=== PATIENT | female | born 1945 | race Caucasian/White ===

== ENCOUNTER 2021-11-18 06:40 | Inpatient (IN) | payer MEDICARE, MEDICAID ==
[~2021-11-18] VITALS: Ht 160 cm; Wt 75.0 kg
[~2021-11-18 06:40] MED LIST: ACET-1008 PO; ATOR40TA72 PO; CHOL200016 PO; CITA20TA26 PO; DICL20GE TP; DIVA-52 PO; DONE5TAB7 PO; LACT1CAP26 PO; LAMO25TA5 PO; LISI10TA27 PO; MULT-1074 PO
--- NOTE | 2021-11-18 07:20 | NUR ---
MD Angelo updated pt with SBPs 86-99. Pt to receive IV fluid bolus 1L NS
[2021-11-18] MEDS ORDERED: normal saline 1000ml 1,000 ML IV ONE ×2 (07:30→08:35)
[2021-11-18 07:35] LABS: BASOPHILS % (AUTO) 0.2 % (0-1); EOSINOPHILS % (AUTO) 0 % (0-6); HEMATOCRIT 33.1 % (35.0-45.0); HEMOGLOBIN 11.2 g/dl (12.0-16.0); LYMPHOCYTES # (AUTO) 0.9 X10'3 (1.1-4.8); LYMPHOCYTES % (AUTO) 8.9 % (21-51); MEAN CORPUSCULAR HEMOGLOBIN 32.6 PG (27.0-31.0); MEAN CORPUSCULAR HGB CONC 33.7 g/dL (33.0-36.5); MEAN CORPUSCULAR VOLUME 96.8 FL (78-98); MEAN PLATELET VOLUME 6.9 FL (7.4-10.4); MONOCYTES # (AUTO) 1.1 X10'3 (0-0.9); MONOCYTES % (AUTO) 10.3 % (2-12); NEUTROPHILS # (AUTO) 8.3 X10'3 (1.8-7.7); NEUTROPHILS % (AUTO) 80.6 % (42-75); PLATELET COUNT 222 X10'3 (140-440); RED BLOOD COUNT 3.42 X10'6 (4.20-5.60); RED CELL DISTRIBUTION WIDTH 13.8 % (11.5-14.5); WHITE BLOOD COUNT 10.3 X10'3 (4.5-11.0)
[2021-11-18 08:05] LABS: ALANINE AMINOTRANSFERASE 17 U/L (12-78); ALBUMIN 2.8 G/DL (3.4-5.0); ALBUMIN/GLOBULIN RATIO 0.8 (1.1-1.5); ALKALINE PHOSPHATASE 68 IU/L (46-116); ANION GAP 8 (8-16); ASPARTATE AMINO TRANSFERASE 21 U/L (10-37); BILIRUBIN,TOTAL 0.7 MG/DL (0.1-1.0); BLOOD UREA NITROGEN 23 MG/DL (7-18); CALCIUM 9.3 MG/DL (8.5-10.1); CHLORIDE 102 MMOL/L (99-107); CREATININE 1.21 MG/DL (0.40-0.90); GLUCOSE 138 MG/DL (70-104); POTASSIUM 4.2 MMOL/L (3.5-5.1); SODIUM 134 MMOL/L (135-145); TOTAL CARBON DIOXIDE 23.8 MMOL/L (24-32); TOTAL PROTEIN 6.4 G/DL (6.4-8.2); eGFR 43 ML/MIN
[2021-11-18] MEDS ORDERED: cefTRIAXone 1g/NS 100ml IVPB 100 ML IV ONE (08:35)
[2021-11-18 09:07] LABS: CLARITY,URINE TURBID (Clear); COLOR,URINE YELLOW (Yellow); GLUCOSE, URINE NEGATIVE (Neg); KETONES,URINE NEGATIVE (Neg); LEUKOCYTE ESTERASE ,URINE LARGE (Neg); NITRITES, URINE POSITIVE (Neg); OCCULT BLOOD,URINE MODERATE (Neg); PROTEIN,URINE 100 mg/dl (Neg); UROBILINOGEN,URINE 0.2 E.U/dL (0.2-1.0)
[2021-11-18 09:11] LABS: UA COLLECTION TYPE OTHER
[2021-11-18 09:12] LABS: BACTERIA,URINE 3+ /HPF (Neg); WBC,URINE TNTC /HPF (0-4)
[2021-11-18 09:13] LABS: RBC,URINE 0-2 /HPF (0-2); SQUAMOUS EPITHELIAL CELL,UR FEW /LPF (FEW)
[2021-11-18] MEDS ORDERED: potassium CL 10mEq/100ml bag 100 ML IV PRN (10:15)
[2021-11-18] MEDS ORDERED: ondansetron/PF 4mg/2ml inj IV PRN (10:15)
[2021-11-18] MEDS ORDERED: magnesium 2GM in 50ml NS 50 ML IV PRN (10:15)
[2021-11-18] MEDS ORDERED: magnesium 4gm in 100ml NS 100 ML IV PRN (10:15)
[2021-11-18] MEDS ORDERED: acetaminophen 325mg tablet PO PRN (10:15)
[2021-11-18] MEDS ORDERED: magnesium hydroxide 30ml (MOM) UD suspension PO PRN (10:15)
[2021-11-18] MEDS ORDERED: mag hydrox/Alum hydrox/simeth 30ml oral suspension PO PRN (10:15)
[2021-11-18] MEDS ORDERED: magnesium Cl slow-release 64mg tablet PO PRN (10:15)
[2021-11-18] MEDS ORDERED: potassium Cl 20 mEq SR tablet PO PRN ×2 (10:15)
[2021-11-18 11:11] LABS: MAGNESIUM 1.9 MG/DL (1.5-2.4)
[2021-11-18 13:30] VITALS: BP 146/54
[2021-11-18] MEDS: normal saline 1000ml 1,000 ML IV SCH ×2 (13:40→20:15)
[2021-11-18 15:00] VITALS: BP 113/59
[2021-11-18] MEDS ORDERED: DIVA-52 PO (16:36)
[2021-11-18] MEDS ORDERED: ATOR40TA72 PO (16:39)
[2021-11-18] MEDS ORDERED: MEMA28CA16 PO (16:39)
[2021-11-18] MEDS ORDERED: OXYB10TA30 PO (16:39)
[2021-11-18] MEDS ORDERED: LAMO50TA3 PO (16:39)
[2021-11-18] MEDS ORDERED: DONE10TA44 PO (16:39)
[2021-11-18] MEDS ORDERED: DIVA-76 PO (16:39)
[2021-11-18] MEDS ORDERED: SERT-434 PO (16:39)
[2021-11-18] MEDS ORDERED: CHOL20003 PO (16:39)
[2021-11-18] MEDS ORDERED: METF-1203 PO (16:39)
[2021-11-18] MEDS ORDERED: LISI10TA27 PO (16:39)
[2021-11-18] MEDS ORDERED: DICL20GE TP (16:41)
[2021-11-18] MEDS ORDERED: MULT-1074 PO (16:41)
[2021-11-18] MEDS ORDERED: ASPI81TA52 PO (16:41)
[2021-11-18] MEDS ORDERED: LACT1CAP75 PO (16:41)
[2021-11-18] MEDS ORDERED: DICLOFENAC SODIUM TP PRN (16:45)
[2021-11-18 18:00] VITALS: BP 95/53
--- NOTE | 2021-11-18 18:30 | NUR ---
Patient in room PCU 3026. I have received report from JOEL REYES AND CALVIN RN and had the opportunity to ask questions and assume patient care.
[2021-11-18] MEDS: LAMOTRIGINE 50 MG PO SCH (20:00)
[2021-11-18] MEDS: K and/or MAG REPLACEMENT MC SCH (20:00)
[2021-11-18] MEDS: memantine 5mg tablet PO SCH (20:31)
[2021-11-18] MEDS: donepezil 5mg tablet PO SCH (20:31)
[2021-11-18] MEDS: oxybutynin 5mg tablet PO SCH (20:32)
[2021-11-18] MEDS: docusate sod 100mg capsule PO SCH (20:32)
[2021-11-18] MEDS: divalproex sodium 500mg tablet.DR PO SCH (20:34)
[2021-11-18] MEDS: heparin, porcine 5000 units/ml vial SQ SCH (20:35)
[2021-11-18 22:00] VITALS: BP 133/57
--- NOTE | 2021-11-19 00:20 | NUR ---
TETE SANCHEZ AND WAS INFORMED OF POSITIVE BLOOD CULTURE GRAM NEGATIVE RODS IN ANAEROBIC BOTTLE AFTER 14.2 HRS.
--- NOTE | 2021-11-19 00:35 | NUR ---
DR. SANCHEZ CALLED BACK WITH ORDER TO GIVE FLAGYL 500MG IV Q8HRS.
[2021-11-19] MEDS: normal saline 1000ml 1,000 ML IV SCH ×2 (01:06→15:08)
[2021-11-19] MEDS: metroNIDAZOLE-Flagyl 500mg/NS 100 ML IV SCH ×3 (01:14→16:48)
[2021-11-19 02:00] VITALS: BP 116/68
[2021-11-19 05:32] LABS: BASOPHILS % (AUTO) 0.2 % (0-1); EOSINOPHILS % (AUTO) 0 % (0-6); HEMATOCRIT 28.7 % (35.0-45.0); HEMOGLOBIN 9.6 g/dl (12.0-16.0); LYMPHOCYTES # (AUTO) 0.9 X10'3 (1.1-4.8); LYMPHOCYTES % (AUTO) 13.3 % (21-51); MEAN CORPUSCULAR HEMOGLOBIN 32.4 PG (27.0-31.0); MEAN CORPUSCULAR HGB CONC 33.5 g/dL (33.0-36.5); MEAN CORPUSCULAR VOLUME 96.8 FL (78-98); MONOCYTES # (AUTO) 0.7 X10'3 (0-0.9); MONOCYTES % (AUTO) 10.2 % (2-12); NEUTROPHILS % (AUTO) 76.3 % (42-75); PLATELET COUNT 194 X10'3 (140-440); RED BLOOD COUNT 2.97 X10'6 (4.20-5.60); RED CELL DISTRIBUTION WIDTH 14.3 % (11.5-14.5); WHITE BLOOD COUNT 6.6 X10'3 (4.5-11.0)
[2021-11-19 05:36] LABS: ALBUMIN 2.1 G/DL (3.4-5.0); ANION GAP 9 (8-16); BLOOD UREA NITROGEN 17 MG/DL (7-18); BUN/CREATININE RATIO 23.3 (6.6-38.0); CHLORIDE 108 MMOL/L (99-107); CREATININE 0.73 MG/DL (0.40-0.90); GLUCOSE 104 MG/DL (70-104); MAGNESIUM 1.7 MG/DL (1.5-2.4); POTASSIUM 3.6 MMOL/L (3.5-5.1); SODIUM 139 MMOL/L (135-145); TOTAL CARBON DIOXIDE 22.2 MMOL/L (24-32); eGFR 78 ML/MIN
[2021-11-19 06:00] VITALS: BP 117/53
--- NOTE | 2021-11-19 06:30 | NUR ---
Problems reprioritized. Patient report given, questions answered & plan of care reviewed with CHANELL REYES.
[2021-11-19] MEDS: K and/or MAG REPLACEMENT MC SCH ×2 (08:00→20:00)
[2021-11-19] MEDS: LAMOTRIGINE 50 MG PO SCH ×2 (08:00→20:00)
[2021-11-19] MEDS: oxybutynin 5mg tablet PO SCH ×2 (08:05→20:22)
[2021-11-19] MEDS: lactobacillus rhamnosus 10,000 MMU CELLS/CAPSULE PO SCH (08:05)
[2021-11-19] MEDS: metFORMIN 500mg tablet PO SCH (08:05)
[2021-11-19] MEDS: atorvastatin 20mg tablet PO SCH (08:05)
[2021-11-19] MEDS: docusate sod 100mg capsule PO SCH ×2 (08:05→20:22)
[2021-11-19] MEDS: cholecalciferol (vitamin D3) 1,000 unit (25mcg) tablet PO SCH (08:06)
[2021-11-19] MEDS: sertraline 50mg tablet PO SCH (08:06)
[2021-11-19] MEDS: divalproex sodium 500mg tablet.DR PO SCH ×2 (08:07→20:22)
[2021-11-19] MEDS: memantine 5mg tablet PO SCH ×2 (08:07→20:22)
[2021-11-19] MEDS: cefTRIAXone 1g/NS 100ml IVPB 100 ML IV SCH (08:08)
[2021-11-19] MEDS: multivitamins, therapeutics tablet PO SCH (08:08)
[2021-11-19] MEDS: aspirin 81mg, enteric-coated 1 TAB TABLET.DR PO SCH (08:09)
[2021-11-19] MEDS: lisinopril 10 MG tablet PO SCH (08:12)
[2021-11-19] MEDS: heparin, porcine 5000 units/ml vial SQ SCH ×2 (08:26→20:23)
[2021-11-19 11:00] VITALS: BP 125/53
[2021-11-19 15:00] VITALS: BP 102/45
--- NOTE | 2021-11-19 17:03 | NUR ---
PAGER ID: [phone] MESSAGE: [id number] Chio Rogers lamotrigine ER not in our formulary. Change rx in hospital? [id number] Katie
[2021-11-19 18:00] VITALS: BP 115/74
--- NOTE | 2021-11-19 18:54 | NUR ---
Report to noc RN
[2021-11-19] MEDS: donepezil 5mg tablet PO SCH (20:21)
[2021-11-19] MEDS: lamoTRIgine 25mg tablet PO SCH (20:25)
[2021-11-19 22:00] VITALS: BP 115/62
[2021-11-20] MEDS: metroNIDAZOLE-Flagyl 500mg/NS 100 ML IV SCH ×2 (00:22→08:31)
[2021-11-20 02:00] VITALS: BP 108/53
[2021-11-20] MEDS: normal saline 1000ml 1,000 ML IV SCH (03:11)
[2021-11-20 05:47] LABS: BASOPHILS % (AUTO) 0.6 % (0-1); EOSINOPHILS # (AUTO) 0.1 X10'3 (0-0.9); HEMATOCRIT 29.6 % (35.0-45.0); HEMOGLOBIN 9.7 g/dl (12.0-16.0); LYMPHOCYTES # (AUTO) 1.7 X10'3 (1.1-4.8); LYMPHOCYTES % (AUTO) 31.9 % (21-51); MEAN CORPUSCULAR HEMOGLOBIN 31.8 PG (27.0-31.0); MEAN CORPUSCULAR HGB CONC 32.8 g/dL (33.0-36.5); MEAN CORPUSCULAR VOLUME 96.9 FL (78-98); MEAN PLATELET VOLUME 7.4 FL (7.4-10.4); MONOCYTES # (AUTO) 0.7 X10'3 (0-0.9); MONOCYTES % (AUTO) 13.6 % (2-12); NEUTROPHILS # (AUTO) 2.8 X10'3 (1.8-7.7); NEUTROPHILS % (AUTO) 52.9 % (42-75); PLATELET COUNT 198 X10'3 (140-440); RED BLOOD COUNT 3.06 X10'6 (4.20-5.60); RED CELL DISTRIBUTION WIDTH 14.3 % (11.5-14.5); WHITE BLOOD COUNT 5.3 X10'3 (4.5-11.0)
[2021-11-20 06:00] VITALS: BP 114/58
[2021-11-20 06:09] LABS: ALBUMIN 2.2 G/DL (3.4-5.0); ANION GAP 6 (8-16); BLOOD UREA NITROGEN 22 MG/DL (7-18); BUN/CREATININE RATIO 29.3 (6.6-38.0); CALCIUM 8.9 MG/DL (8.5-10.1); CHLORIDE 107 MMOL/L (99-107); CREATININE 0.75 MG/DL (0.40-0.90); GLUCOSE 96 MG/DL (70-104); MAGNESIUM 1.6 MG/DL (1.5-2.4); POTASSIUM 4.4 MMOL/L (3.5-5.1); SODIUM 138 MMOL/L (135-145); TOTAL CARBON DIOXIDE 24.7 MMOL/L (24-32); eGFR 75 ML/MIN
[2021-11-20] MEDS: cefTRIAXone 1g/NS 100ml IVPB 100 ML IV SCH (07:13)
[2021-11-20] MEDS: divalproex sodium 500mg tablet.DR PO SCH (07:30)
[2021-11-20] MEDS: metFORMIN 500mg tablet PO SCH (07:30)
[2021-11-20] MEDS: sertraline 50mg tablet PO SCH (07:31)
[2021-11-20] MEDS: atorvastatin 20mg tablet PO SCH (07:31)
[2021-11-20] MEDS: multivitamins, therapeutics tablet PO SCH (07:32)
[2021-11-20] MEDS: heparin, porcine 5000 units/ml vial SQ SCH (07:32)
[2021-11-20] MEDS: aspirin 81mg, enteric-coated 1 TAB TABLET.DR PO SCH (07:32)
[2021-11-20] MEDS: memantine 5mg tablet PO SCH (07:32)
[2021-11-20] MEDS: lactobacillus rhamnosus 10,000 MMU CELLS/CAPSULE PO SCH (07:32)
[2021-11-20] MEDS: lisinopril 10 MG tablet PO SCH (07:35)
[2021-11-20] MEDS: oxybutynin 5mg tablet PO SCH (07:35)
[2021-11-20] MEDS: cholecalciferol (vitamin D3) 1,000 unit (25mcg) tablet PO SCH (07:35)
[2021-11-20] MEDS: docusate sod 100mg capsule PO SCH (07:36)
[2021-11-20] MEDS: K and/or MAG REPLACEMENT MC SCH (08:00)
[2021-11-20] MEDS: lamoTRIgine 25mg tablet PO SCH (08:18)
--- NOTE | 2021-11-20 09:33 | NUR ---
Patient in room PCU 3026. I have received report from emigdio and had the opportunity to ask questions and assume patient care.
[2021-11-20] MEDS ORDERED: LEVO750T46 PO (10:22)
[2021-11-20 11:00] VITALS: BP 111/51
--- NOTE | 2021-11-20 15:05 | NUR ---
PATIENT IV TAKEN OUT IN TACT, WENT OVER DISCHARGE PACKET AND ANSWERED ALL QUESTIONS THE CAREGIVER.
== END 2021-11-20 15:22 | disposition home or self-care (01) | DRG 871 ==
LOC: ER 06:40 → ED HOLD 10:18 → PCU 3S 13:05
PROVIDERS: ADMIT Family Medicine; ATTEND Family Medicine
DX: A41.51 Sepsis due to Escherichia coli [E. coli] (principal); G93.41 Metabolic encephalopathy; N39.0 Urinary tract infection, site not specified; R31.9 Hematuria, unspecified; E78.5 Hyperlipidemia, unspecified; Z20.822 Contact with and (suspected) exposure to COVID-19; B96.20 Unspecified Escherichia coli [E. coli] as the cause of diseases classified elsewhere; E11.9 Type 2 diabetes mellitus without complications; G40.909 Epilepsy, unspecified, not intractable, without status epilepticus; I10 Essential (primary) hypertension; F32.A Depression, unspecified; M19.90 Unspecified osteoarthritis, unspecified site; I95.9 Hypotension, unspecified
CPT/HCPCS: 36415; 71045; 80048; 80053; 81001; 83605; 83735; 83880; 84145; 84484; 85025; 87040; 87077; 87081; 87088; 87186; 87502; 87503; 87635; 93005; 96361; 96365; 97161; 97530; 97535; 99285; C9803; G0378; J0696; J1644; J3490; J7030

== ENCOUNTER 2022-04-16 08:02 | Emergency (ER) | payer MEDICARE, MEDICAID ==
[~2022-04-16] VITALS: Ht 157.5 cm; Wt 44.1 kg
[~2022-04-16 08:02] MED LIST changes: -ACET-1008 PO; +ASPI81TA52 PO; -CHOL200016 PO; +CHOL20003 PO; -CITA20TA26 PO; +DIVA-76 PO; +DONE10TA44 PO; -DONE5TAB7 PO; -LACT1CAP26 PO; +LACT1CAP75 PO; -LAMO25TA5 PO; +LAMO50TA3 PO; +MEMA28CA16 PO; +METF-1203 PO; +OXYB10TA30 PO; +SERT-434 PO
[2022-04-16 09:06] LABS: BASOPHILS % (AUTO) 0.5 % (0-1); EOSINOPHILS # (AUTO) 0.1 X10'3 (0-0.9); EOSINOPHILS % (AUTO) 1.1 % (0-6); HEMATOCRIT 36.2 % (35.0-45.0); HEMOGLOBIN 12.2 g/dl (12.0-16.0); LYMPHOCYTES # (AUTO) 2.5 X10'3 (1.1-4.8); LYMPHOCYTES % (AUTO) 35.9 % (21-51); MEAN CORPUSCULAR HEMOGLOBIN 31.9 PG (27.0-31.0); MEAN CORPUSCULAR HGB CONC 33.7 g/dL (33.0-36.5); MEAN CORPUSCULAR VOLUME 94.8 FL (78-98); MEAN PLATELET VOLUME 7.4 FL (7.4-10.4); MONOCYTES # (AUTO) 0.7 X10'3 (0-0.9); MONOCYTES % (AUTO) 9.9 % (2-12); NEUTROPHILS # (AUTO) 3.7 X10'3 (1.8-7.7); NEUTROPHILS % (AUTO) 52.6 % (42-75); PLATELET COUNT 219 X10'3 (140-440); RED BLOOD COUNT 3.82 X10'6 (4.20-5.60); RED CELL DISTRIBUTION WIDTH 14.3 % (11.5-14.5); WHITE BLOOD COUNT 6.9 X10'3 (4.5-11.0)
[2022-04-16 09:27] LABS: ALANINE AMINOTRANSFERASE 14 U/L (12-78); ALBUMIN 3.3 G/DL (3.4-5.0); ALKALINE PHOSPHATASE 80 IU/L (46-116); ANION GAP 8 (8-16); ASPARTATE AMINO TRANSFERASE 17 U/L (10-37); BILIRUBIN,TOTAL 0.4 MG/DL (0.1-1.0); BLOOD UREA NITROGEN 17 MG/DL (7-18); BUN/CREATININE RATIO 21.5 (6.6-38.0); CALCIUM 9.7 MG/DL (8.5-10.1); CHLORIDE 101 MMOL/L (99-107); CREATININE 0.79 MG/DL (0.40-0.90); GLUCOSE 109 MG/DL (70-104); POTASSIUM 4.7 MMOL/L (3.5-5.1); SODIUM 136 MMOL/L (135-145); TOTAL PROTEIN 6.6 G/DL (6.4-8.2); eGFR 71 ML/MIN
[2022-04-16 10:00] LABS: CLARITY,URINE CLEAR (Clear); COLOR,URINE YELLOW (Yellow); GLUCOSE, URINE NEGATIVE (Neg); KETONES,URINE 15 mg/dl (Neg); LEUKOCYTE ESTERASE ,URINE NEGATIVE (Neg); NITRITES, URINE NEGATIVE (Neg); OCCULT BLOOD,URINE NEGATIVE (Neg); PH,URINE 6.5 (4.8-8.0); PROTEIN,URINE NEGATIVE (Neg)
[2022-04-16 10:05] LABS: UA COLLECTION TYPE STRAIGHT CATH
[2022-04-16 13:39] VITALS: BP 153/63
== END 2022-04-16 13:42 | disposition home or self-care (01) ==
LOC: ER 08:02
DX: R41.0 Disorientation, unspecified (principal); R41.82 Altered mental status, unspecified; R35.0 Frequency of micturition; E11.9 Type 2 diabetes mellitus without complications; F03.90 Unspecified dementia, unspecified severity, without behavioral disturbance, psychotic disturbance, mood disturbance, and anxiety; Z79.82 Long term (current) use of aspirin; Z79.899 Other long term (current) drug therapy; Z79.84 Long term (current) use of oral hypoglycemic drugs
CPT/HCPCS: 36415; 71045; 80053; 81003; 84484; 85025; 93005; 99285; C1758

== ENCOUNTER 2022-05-24 08:59 | Emergency (ER) | payer MEDICARE, MEDICAID ==
[~2022-05-24] VITALS: Ht 170.2 cm; Wt 90.0 kg
[2022-05-24] MEDS ORDERED: normal saline 1000ML IV soln IVB ONE (09:10)
[2022-05-24 10:40] LABS: BASOPHILS % (AUTO) 0.4 % (0-1); EOSINOPHILS % (AUTO) 0.9 % (0-6); HEMATOCRIT 35.2 % (35.0-45.0); LYMPHOCYTES # (AUTO) 1.7 X10'3 (1.1-4.8); LYMPHOCYTES % (AUTO) 36.3 % (21-51); MEAN CORPUSCULAR HEMOGLOBIN 32.4 PG (27.0-31.0); MEAN CORPUSCULAR HGB CONC 34.2 g/dL (33.0-36.5); MEAN CORPUSCULAR VOLUME 94.5 FL (78-98); MEAN PLATELET VOLUME 7.4 FL (7.4-10.4); MONOCYTES # (AUTO) 0.6 X10'3 (0-0.9); MONOCYTES % (AUTO) 11.6 % (2-12); NEUTROPHILS # (AUTO) 2.4 X10'3 (1.8-7.7); NEUTROPHILS % (AUTO) 50.8 % (42-75); PLATELET COUNT 219 X10'3 (140-440); RED BLOOD COUNT 3.72 X10'6 (4.20-5.60); RED CELL DISTRIBUTION WIDTH 14.5 % (11.5-14.5); WHITE BLOOD COUNT 4.8 X10'3 (4.5-11.0)
[2022-05-24 10:57] LABS: ALANINE AMINOTRANSFERASE 15 U/L (12-78); ALBUMIN 3.3 G/DL (3.4-5.0); ALKALINE PHOSPHATASE 94 IU/L (46-116); ANION GAP 6 (8-16); ASPARTATE AMINO TRANSFERASE 27 U/L (10-37); BILIRUBIN,TOTAL 0.3 MG/DL (0.1-1.0); BLOOD UREA NITROGEN 12 MG/DL (7-18); BUN/CREATININE RATIO 15.2 (6.6-38.0); CALCIUM 9.7 MG/DL (8.5-10.1); CHLORIDE 99 MMOL/L (99-107); CREATININE 0.79 MG/DL (0.40-0.90); GLUCOSE 82 MG/DL (70-104); POTASSIUM 4.5 MMOL/L (3.5-5.1); SODIUM 133 MMOL/L (135-145); TOTAL PROTEIN 6.5 G/DL (6.4-8.2); eGFR 71 ML/MIN
[2022-05-24 11:51] LABS: CLARITY,URINE CLEAR (Clear); COLOR,URINE YELLOW (Yellow); GLUCOSE, URINE NEGATIVE (Neg); KETONES,URINE NEGATIVE (Neg); LEUKOCYTE ESTERASE ,URINE NEGATIVE (Neg); NITRITES, URINE NEGATIVE (Neg); OCCULT BLOOD,URINE NEGATIVE (Neg); PROTEIN,URINE NEGATIVE (Neg); UROBILINOGEN,URINE 0.2 E.U/dL (0.2-1.0)
[2022-05-24 11:56] LABS: UA COLLECTION TYPE STRAIGHT CATH
--- NOTE | 2022-05-24 16:41 | NUR ---
transportation arrived at 16:40. Pt refused v/s, appears confused and onerous
[2022-05-24 16:42] VITALS: BP 140/66
== END 2022-05-24 16:45 | disposition home or self-care (01) ==
LOC: ER 08:59
DX: F03.90 Unspecified dementia, unspecified severity, without behavioral disturbance, psychotic disturbance, mood disturbance, and anxiety (principal); R45.87 Impulsiveness; R45.1 Restlessness and agitation; E11.9 Type 2 diabetes mellitus without complications; Z86.69 Personal history of other diseases of the nervous system and sense organs; Z72.89 Other problems related to lifestyle; Z79.82 Long term (current) use of aspirin; Z79.899 Other long term (current) drug therapy
CPT/HCPCS: 36415; 70450; 80053; 81003; 82140; 85025; 99284; J7030; A4353

== ENCOUNTER 2022-09-22 00:09 | Emergency (ER) | payer MEDICARE, MEDICAID ==
[~2022-09-22] VITALS: Ht 160 cm; Wt 78.0 kg
[2022-09-22] MEDS ORDERED: ketorolac trometh. 30mg/ml inj. IV ONE (00:35)
[2022-09-22] MEDS ORDERED: ondansetron/PF 4mg/2ml inj IV ONE (00:35)
[2022-09-22] MEDS ORDERED: acetaminophen 325mg tablet PO ONE (00:35)
[2022-09-22] MEDS ORDERED: fentaNYL/PF 50MCG/1 ML 2ML syringe IV ONE (00:35)
[2022-09-22] MEDS ORDERED: bacitracin 15gm ointment TP ONE (01:00)
[2022-09-22] MEDS ORDERED: TRAM50TA2 PO (01:54)
--- NOTE | 2022-09-22 02:46 | NUR ---
Report called to David Jara who kindly accepts report. patient cleared for wheelchair van discharge pending transport availability.
[2022-09-22 05:48] VITALS: BP 124/65
== END 2022-09-22 06:26 | disposition home or self-care (01) ==
LOC: ER 00:10
DX: S52.592A Other fractures of lower end of left radius, initial encounter for closed fracture (principal); W18.39XA Other fall on same level, initial encounter; Y93.89 Activity, other specified; Y92.89 Other specified places as the place of occurrence of the external cause; Y99.8 Other external cause status; F03.90 Unspecified dementia, unspecified severity, without behavioral disturbance, psychotic disturbance, mood disturbance, and anxiety; E11.9 Type 2 diabetes mellitus without complications; Z88.6 Allergy status to analgesic agent; Z79.899 Other long term (current) drug therapy; Z79.1 Long term (current) use of non-steroidal anti-inflammatories (NSAID); Z79.2 Long term (current) use of antibiotics
CPT/HCPCS: 29125; 73030; 73060; 73090; 73120; 96374; 96375; 99284; J1885; J2405; J3010; A4565; A6258

== ENCOUNTER 2022-10-14 00:06 | Emergency (ER) | payer MEDICARE, MEDICAID ==
[~2022-10-14] VITALS: Ht 172.7 cm; Wt 68.2 kg
[~2022-10-14 00:06] MED LIST changes: +TRAM50TA2 PO
[2022-10-14 01:09] LABS: BASOPHILS % (AUTO) 0.3 % (0-1); EOSINOPHILS % (AUTO) 0.2 % (0-6); HEMATOCRIT 36.8 % (35.0-45.0); HEMOGLOBIN 12.7 g/dl (12.0-16.0); LYMPHOCYTES # (AUTO) 1.4 X10'3 (1.1-4.8); LYMPHOCYTES % (AUTO) 17.8 % (21-51); MEAN CORPUSCULAR HEMOGLOBIN 32.6 PG (27.0-31.0); MEAN CORPUSCULAR HGB CONC 34.5 g/dL (33.0-36.5); MEAN CORPUSCULAR VOLUME 94.7 FL (78-98); MONOCYTES # (AUTO) 0.7 X10'3 (0-0.9); MONOCYTES % (AUTO) 9.4 % (2-12); NEUTROPHILS # (AUTO) 5.6 X10'3 (1.8-7.7); NEUTROPHILS % (AUTO) 72.3 % (42-75); PLATELET COUNT 350 X10'3 (140-440); RED BLOOD COUNT 3.88 X10'6 (4.20-5.60); RED CELL DISTRIBUTION WIDTH 13.8 % (11.5-14.5); WHITE BLOOD COUNT 7.7 X10'3 (4.5-11.0)
[2022-10-14 01:24] LABS: ALANINE AMINOTRANSFERASE 13 U/L (12-78); ALBUMIN 3.4 G/DL (3.4-5.0); ALKALINE PHOSPHATASE 124 IU/L (46-116); ANION GAP 7 (8-16); ASPARTATE AMINO TRANSFERASE 14 U/L (10-37); BILIRUBIN,TOTAL 0.7 MG/DL (0.1-1.0); BLOOD UREA NITROGEN 14 MG/DL (7-18); BUN/CREATININE RATIO 18.7 (6.6-38.0); CALCIUM 10.3 MG/DL (8.5-10.1); CHLORIDE 98 MMOL/L (99-107); CREATININE 0.75 MG/DL (0.40-0.90); GLUCOSE 118 MG/DL (70-104); POTASSIUM 4.4 MMOL/L (3.5-5.1); SODIUM 131 MMOL/L (135-145); TOTAL CARBON DIOXIDE 25.9 MMOL/L (24-32); TOTAL PROTEIN 6.8 G/DL (6.4-8.2); eGFR 75 ML/MIN
[2022-10-14 03:28] LABS: COLOR,URINE YELLOW (Yellow); GLUCOSE, URINE NEGATIVE (Neg); KETONES,URINE TRACE mg/dl (Neg); LEUKOCYTE ESTERASE ,URINE TRACE (Neg); NITRITES, URINE NEGATIVE (Neg); OCCULT BLOOD,URINE NEGATIVE (Neg); PROTEIN,URINE NEGATIVE (Neg)
[2022-10-14 03:32] LABS: UA COLLECTION TYPE CLN CATCH MIDSTREAM
[2022-10-14 03:34] LABS: CLARITY,URINE SLIGHTLY CLOUDY (Clear)
[2022-10-14 03:36] LABS: BACTERIA,URINE FEW /HPF (Neg); SQUAMOUS EPITHELIAL CELL,UR FEW /LPF (FEW)
[2022-10-14 03:37] LABS: HYALINE CASTS 0-3 /LPF (NEGATIVE); MUCUS STRANDS FEW /LPF (Neg)
[2022-10-14] MEDS ORDERED: CEPH250T PO (04:48)
--- NOTE | 2022-10-14 04:56 | NUR ---
Attempted to call [facility], no answer and voicemail not set up.
[2022-10-14 06:21] VITALS: BP 116/68
== END 2022-10-14 06:23 | disposition home or self-care (01) ==
LOC: ER 00:07
DX: R41.82 Altered mental status, unspecified (principal); N39.0 Urinary tract infection, site not specified; F03.90 Unspecified dementia, unspecified severity, without behavioral disturbance, psychotic disturbance, mood disturbance, and anxiety; E11.9 Type 2 diabetes mellitus without complications; Z79.899 Other long term (current) drug therapy; Z79.82 Long term (current) use of aspirin
CPT/HCPCS: 36415; 71045; 80053; 81001; 85025; 87077; 87088; 87186; 99284

== ENCOUNTER 2023-02-28 14:41 | Emergency (ER) | payer MEDICARE, MEDICAID ==
[~2023-02-28] VITALS: Ht 172.7 cm; Wt 68.2 kg
[~2023-02-28 14:41] MED LIST changes: -TRAM50TA2 PO
[2023-02-28 15:51] LABS: BASOPHILS % (AUTO) 0.5 % (0-1); EOSINOPHILS # (AUTO) 0.1 X10'3 (0-0.9); EOSINOPHILS % (AUTO) 1.2 % (0-6); HEMATOCRIT 34.6 % (35.0-45.0); HEMOGLOBIN 11.7 g/dl (12.0-16.0); LYMPHOCYTES # (AUTO) 2.3 X10'3 (1.1-4.8); LYMPHOCYTES % (AUTO) 48.7 % (21-51); MEAN CORPUSCULAR HEMOGLOBIN 31.7 PG (27.0-31.0); MEAN CORPUSCULAR HGB CONC 33.6 g/dL (33.0-36.5); MEAN CORPUSCULAR VOLUME 94.3 FL (78-98); MEAN PLATELET VOLUME 7.2 FL (7.4-10.4); MONOCYTES # (AUTO) 0.5 X10'3 (0-0.9); MONOCYTES % (AUTO) 11.2 % (2-12); NEUTROPHILS # (AUTO) 1.8 X10'3 (1.8-7.7); NEUTROPHILS % (AUTO) 38.4 % (42-75); PLATELET COUNT 204 X10'3 (140-440); RED BLOOD COUNT 3.67 X10'6 (4.20-5.60); RED CELL DISTRIBUTION WIDTH 14.5 % (11.5-14.5); WHITE BLOOD COUNT 4.7 X10'3 (4.5-11.0)
[2023-02-28 15:54] LABS: ANION GAP 10 (8-16); BILIRUBIN,TOTAL 0.5 MG/DL (0.1-1.0); BLOOD UREA NITROGEN 12 MG/DL (7-18); CALCIUM 9.7 MG/DL (8.5-10.1); CHLORIDE 98 MMOL/L (99-107); CREATININE 0.75 MG/DL (0.40-0.90); GLUCOSE 87 MG/DL (70-104); POTASSIUM 4.3 MMOL/L (3.5-5.1); SODIUM 134 MMOL/L (135-145); TOTAL CARBON DIOXIDE 26.4 MMOL/L (24-32); eGFR 75 ML/MIN
[2023-02-28 15:55] LABS: ALANINE AMINOTRANSFERASE 16 U/L (12-78); ALBUMIN 3.3 G/DL (3.4-5.0); ALBUMIN/GLOBULIN RATIO 1.1 (1.1-1.5); ALKALINE PHOSPHATASE 88 IU/L (46-116); ASPARTATE AMINO TRANSFERASE 19 U/L (10-37); TOTAL PROTEIN 6.3 G/DL (6.4-8.2)
[2023-02-28 16:55] LABS: COLOR,URINE YELLOW (Yellow); GLUCOSE, URINE NEGATIVE (Neg); KETONES,URINE 15 mg/dl (Neg); LEUKOCYTE ESTERASE ,URINE SMALL (Neg); NITRITES, URINE NEGATIVE (Neg); OCCULT BLOOD,URINE NEGATIVE (Neg); PROTEIN,URINE NEGATIVE (Neg)
[2023-02-28 16:58] LABS: CLARITY,URINE SLIGHTLY CLOUDY (Clear); UA COLLECTION TYPE STRAIGHT CATH
[2023-02-28 17:08] LABS: BACTERIA,URINE FEW /HPF (Neg); SQUAMOUS EPITHELIAL CELL,UR NONE SEEN /LPF (FEW)
[2023-02-28 17:09] LABS: RBC,URINE NONE SEEN /HPF (0-2)
[2023-02-28] MEDS ORDERED: FOSFOMYCIN TROMETHAMINE 3 GM PACKET PO ONE (17:25)
--- NOTE | 2023-02-28 18:02 | NUR ---
Patient refusing the Fosfomycin Dr. De La Cruz aware. He tried to convinced the patient to take it too but refusing and being agitated when insisted to take the medicine. Dr. De La Cruz said he will just write a prescription to take with her instead
[2023-02-28] MEDS ORDERED: CEPH500C2 PO (18:09)
[2023-02-28 21:35] VITALS: BP 142/64
--- NOTE | 2023-02-28 22:29 | NUR ---
[facility] AT BEDSIDE FOR TX TO [facility]. MARCE HERNANDEZOR CALLED FOR STATUS UPDATE.
== END 2023-02-28 22:31 | disposition home or self-care (01) ==
LOC: ER 14:41
DX: N39.0 Urinary tract infection, site not specified (principal); E78.00 Pure hypercholesterolemia, unspecified; F41.9 Anxiety disorder, unspecified; E11.9 Type 2 diabetes mellitus without complications; Z79.899 Other long term (current) drug therapy
CPT/HCPCS: 36415; 71045; 80053; 81001; 83605; 84145; 85025; 87040; 87077; 87088; 87186; 93005; 99285; A4353

== ENCOUNTER 2023-03-09 11:31 | Emergency (ER) | payer MEDICARE, MEDICAID ==
[~2023-03-09] VITALS: Ht 170.2 cm; Wt 70.0 kg
[2023-03-09 11:41] VITALS: TEMP 97.5
[2023-03-09 12:11] LABS: BASOPHILS % (AUTO) 0.6 % (0-1); EOSINOPHILS # (AUTO) 0.1 X10'3 (0-0.9); HEMATOCRIT 39.7 % (35.0-45.0); HEMOGLOBIN 12.9 g/dl (12.0-16.0); LYMPHOCYTES # (AUTO) 2.3 X10'3 (1.1-4.8); LYMPHOCYTES % (AUTO) 47.9 % (21-51); MEAN CORPUSCULAR HEMOGLOBIN 31.2 PG (27.0-31.0); MEAN CORPUSCULAR HGB CONC 32.6 g/dL (33.0-36.5); MEAN CORPUSCULAR VOLUME 95.7 FL (78-98); MEAN PLATELET VOLUME 7.4 FL (7.4-10.4); MONOCYTES # (AUTO) 0.5 X10'3 (0-0.9); MONOCYTES % (AUTO) 9.3 % (2-12); NEUTROPHILS % (AUTO) 40.2 % (42-75); PLATELET COUNT 248 X10'3 (140-440); RED BLOOD COUNT 4.14 X10'6 (4.20-5.60); RED CELL DISTRIBUTION WIDTH 14.7 % (11.5-14.5); WHITE BLOOD COUNT 4.9 X10'3 (4.5-11.0)
[2023-03-09 12:21] LABS: ALANINE AMINOTRANSFERASE 16 U/L (12-78); ALBUMIN 3.2 G/DL (3.4-5.0); ALKALINE PHOSPHATASE 87 IU/L (46-116); ANION GAP 11 (8-16); ASPARTATE AMINO TRANSFERASE 14 U/L (10-37); BILIRUBIN,TOTAL 0.4 MG/DL (0.1-1.0); BLOOD UREA NITROGEN 18 MG/DL (7-18); BUN/CREATININE RATIO 24.7 (10.0-20.0); CHLORIDE 105 MMOL/L (99-107); CREATININE 0.73 MG/DL (0.40-0.90); GLUCOSE 100 MG/DL (70-104); LIPASE 57 U/L (73-393); POTASSIUM 4.1 MMOL/L (3.5-5.1); SODIUM 142 MMOL/L (135-145); TOTAL CARBON DIOXIDE 26.4 MMOL/L (24-32); TOTAL PROTEIN 6.3 G/DL (6.4-8.2); eGFR 78 ML/MIN
[2023-03-09 12:45] LABS: CLARITY,URINE CLOUDY (Clear); COLOR,URINE YELLOW (Yellow); GLUCOSE, URINE NEGATIVE (Neg); KETONES,URINE NEGATIVE (Neg); LEUKOCYTE ESTERASE ,URINE NEGATIVE (Neg); NITRITES, URINE NEGATIVE (Neg); OCCULT BLOOD,URINE NEGATIVE (Neg); PROTEIN,URINE NEGATIVE (Neg); UROBILINOGEN,URINE 0.2 E.U/dL (0.2-1.0)
[2023-03-09 12:50] LABS: UA COLLECTION TYPE STRAIGHT CATH
[2023-03-09 12:51] LABS: MUCUS STRANDS FEW /LPF (Neg); SQUAMOUS EPITHELIAL CELL,UR FEW /LPF (FEW)
[2023-03-09 12:52] LABS: BACTERIA,URINE FEW /HPF (Neg); CAL OXALATE CRYSTALS 1+ /HPF (NEGATIVE); RBC,URINE 0-2 /HPF (0-2)
[2023-03-09 13:51] VITALS: BP 135/61; PULSE 56; RESP 20; O2SAT 98
--- NOTE | 2023-03-09 14:39 | NUR ---
SPOKE TO THE JUDI @ FACILITY R/T D/U AND F/U INSTRUCTIONS. ALL QUESTIONS ANSWERED PRIOR TO D/C. PT LEFT VIA [facility] IN STABLE CONDITION.
--- NOTE | 2023-03-09 14:44 | NUR ---
FLEX WILL BE HERE BETWEEN 3:30-4PM
== END 2023-03-09 15:17 | disposition home or self-care (01) ==
LOC: ER 11:31
DX: Z79.82 Long term (current) use of aspirin (principal); Z79.899 Other long term (current) drug therapy; R56.9 Unspecified convulsions; E78.00 Pure hypercholesterolemia, unspecified; E11.9 Type 2 diabetes mellitus without complications; F03.90 Unspecified dementia, unspecified severity, without behavioral disturbance, psychotic disturbance, mood disturbance, and anxiety
CPT/HCPCS: 36415; 80053; 81001; 82948; 83605; 83690; 84145; 85025; 87040; 87088; 99283; A4353

== ENCOUNTER 2023-03-30 15:23 | Emergency (ER) | payer MEDICARE, MEDICAID ==
[~2023-03-30] VITALS: Ht 160 cm; Wt 69.0 kg
[2023-03-30 15:44] VITALS: BP 135/61; PULSE 63; TEMP 98.1; O2SAT 94
[2023-03-30] MEDS ORDERED: acetaminophen 325mg tablet PO ONE (15:45)
[2023-03-30 15:50] VITALS: RESP 18
--- NOTE | 2023-03-30 17:26 | NUR ---
CALLED [facility] AT [phone] AND LEFT A MESSAGE TO HAVE THIS PATIENT TRANSPORTED BACK TO HER FACILITY. PT DOES HAVE AN ACCOUNT WITH [facility].
--- NOTE | 2023-03-30 18:38 | NUR ---
[facility] DECLINED DUE TO THE FACILITY NOT HAVING AN AFTER HOURS CONTRACT. [facility] WAS CALLED FOR TRANSPORT DUE TO THIS. PT WILL BE PICKED UP WITHIN THE HOUR.
--- NOTE | 2023-03-30 19:13 | NUR ---
report called to jenny thomas, aware that pt is being transferred back.
== END 2023-03-30 19:17 | disposition home or self-care (01) ==
LOC: ER 15:24
DX: S00.03XA Contusion of scalp, initial encounter (principal); E78.00 Pure hypercholesterolemia, unspecified; E11.9 Type 2 diabetes mellitus without complications; Z79.82 Long term (current) use of aspirin; Z79.899 Other long term (current) drug therapy; W19.XXXA Unspecified fall, initial encounter; Y93.89 Activity, other specified; Y92.89 Other specified places as the place of occurrence of the external cause; Y99.8 Other external cause status
CPT/HCPCS: 70450; 72125; 99284

== ENCOUNTER 2023-09-05 21:20 | Inpatient (IN) | payer MEDICARE, MEDICAID ==
[~2023-09-05] VITALS: Ht 170.2 cm; Wt 86.8 kg
[2023-09-05 22:05] LABS: BASOPHILS % (AUTO) 0.5 % (0-1); EOSINOPHILS % (AUTO) 0.2 % (0-6); HEMATOCRIT 35.8 % (35.0-45.0); HEMOGLOBIN 12.2 g/dl (12.0-16.0); LYMPHOCYTES # (AUTO) 1.3 X10'3 (1.1-4.8); LYMPHOCYTES % (AUTO) 16.9 % (21-51); MEAN CORPUSCULAR HEMOGLOBIN 32.3 PG (27.0-31.0); MEAN CORPUSCULAR HGB CONC 34.1 g/dL (33.0-36.5); MEAN CORPUSCULAR VOLUME 94.7 FL (78-98); MEAN PLATELET VOLUME 7.3 FL (7.4-10.4); MONOCYTES # (AUTO) 0.9 X10'3 (0-0.9); MONOCYTES % (AUTO) 12.1 % (2-12); NEUTROPHILS # (AUTO) 5.2 X10'3 (1.8-7.7); NEUTROPHILS % (AUTO) 70.3 % (42-75); PLATELET COUNT 212 X10'3 (140-440); RED BLOOD COUNT 3.78 X10'6 (4.20-5.60); RED CELL DISTRIBUTION WIDTH 14.6 % (11.5-14.5); WHITE BLOOD COUNT 7.4 X10'3 (4.5-11.0)
[2023-09-05 22:13] VITALS: TEMP 98.5
[2023-09-05 22:26] LABS: ALANINE AMINOTRANSFERASE 17 U/L (12-78); ALBUMIN 3.3 G/DL (3.4-5.0); ALBUMIN/GLOBULIN RATIO 0.9 (1.1-1.5); ALKALINE PHOSPHATASE 104 IU/L (46-116); ANION GAP 10 (8-16); ASPARTATE AMINO TRANSFERASE 16 U/L (10-37); BILIRUBIN,TOTAL 0.4 MG/DL (0.1-1.0); BLOOD UREA NITROGEN 18 MG/DL (7-18); CALCIUM 9.7 MG/DL (8.5-10.1); CHLORIDE 100 MMOL/L (99-107); GLUCOSE 130 MG/DL (70-104); POTASSIUM 4.1 MMOL/L (3.5-5.1); SODIUM 136 MMOL/L (135-145); TOTAL CARBON DIOXIDE 26.3 MMOL/L (24-32); TOTAL PROTEIN 6.8 G/DL (6.4-8.2); eCRCL 46 ML/MIN; eGFR 54 ML/MIN
[2023-09-05 22:27] LABS: PRO BRAIN NATRIURETIC PEPTIDE 415 PG/ML (0-450)
[2023-09-05 23:09] LABS: BILIRUBIN,URINE NEGATIVE (Neg); CLARITY,URINE CLEAR (Clear); COLOR,URINE YELLOW (Yellow); GLUCOSE, URINE NEGATIVE (Neg); KETONES,URINE NEGATIVE (Neg); LEUKOCYTE ESTERASE ,URINE NEGATIVE (Neg); NITRITES, URINE NEGATIVE (Neg); OCCULT BLOOD,URINE NEGATIVE (Neg); PH,URINE 7.5 (4.8-8.0); PROTEIN,URINE NEGATIVE (Neg)
[2023-09-05 23:38] LABS: UA COLLECTION TYPE VOIDED
[2023-09-06] MEDS: methylPREDNISolone sod succ 125mg/2ml vial IV ONE (00:50)
[2023-09-06] MEDS ORDERED: ondansetron/PF 4mg/2ml inj IV PRN (01:05)
[2023-09-06] MEDS ORDERED: mag hydrox/Alum hydrox/simeth 30ml oral suspension PO PRN (01:05)
[2023-09-06] MEDS ORDERED: potassium Cl 40MEQ/1/2NS 520ml 520 ML IV PRN (01:05)
[2023-09-06] MEDS ORDERED: magnesium Cl slow-release 64mg tablet PO PRN (01:05)
[2023-09-06] MEDS ORDERED: magnesium 2GM in 50ml NS 50 ML IV PRN (01:05)
[2023-09-06] MEDS ORDERED: magnesium 4gm in 100ml NS 100 ML IV PRN (01:05)
[2023-09-06] MEDS ORDERED: acetaminophen 325mg tablet PO PRN ×2 (01:05)
[2023-09-06] MEDS ORDERED: morphine 2 MG/ML inj. syringe IV PRN ×2 (01:05)
[2023-09-06] MEDS ORDERED: potassium Cl 20 mEq SR tablet PO PRN ×2 (01:05)
[2023-09-06] MEDS: normal saline 1000ml 1,000 ML IV SCH (01:29)
[2023-09-06] MEDS ORDERED: insulin Lispro (HumaLOG) vial - multi-dose SQ SCH (01:40)
[2023-09-06] MEDS ORDERED: dextrose 50%-water 50ml dispensing syringe IV PRN ×2 (01:40)
[2023-09-06] MEDS ORDERED: glucagon, human recombinant 1mg kit SUBCUT PRN (01:40)
[2023-09-06] MEDS ORDERED: DEXTROSE 15 GM of carb/4 tabs (each vial/BOTTLE has 4 tablets) PO PRN ×2 (01:40)
[2023-09-06 01:53] LABS: D-DIMER 0.49 MG/L FEU (0-0.50)
[2023-09-06] MEDS ORDERED: dexamethasone 4mg/ml inj IV SCH (02:00)
[2023-09-06] MEDS: MESSAGE TO PHARMACY PO ONE (02:06)
[2023-09-06] MEDS: REMDESIVIR 200 MG in NS 100ml IVPB Loading dose IV ONE (03:12)
[2023-09-06] MEDS: K and/or MAG REPLACEMENT MC SCH (08:00)
[2023-09-06] MEDS: docusate sod 100mg capsule PO SCH (09:00)
[2023-09-06] MEDS: enoxaparin 30mg/0.3ml syringe SQ SCH (09:01)
[2023-09-06 09:09] LABS: CHOL/HDL RATIO 1.5 (0.00-4.99); CHOLESTEROL 105 MG/DL (0-200); HDL CHOLESTEROL 69 MG/DL (35-60); LDL CHOLESTEROL 28 MG/DL (50-100); MAGNESIUM 1.6 MG/DL (1.5-2.4); POTASSIUM 4.4 MMOL/L (3.5-5.1); THYROID STIMULATING HORMONE 1.32 ulU/ml (0.34-4.50)
[2023-09-06 09:10] LABS: TRIGLYCERIDES < 15 MG/DL (20-135)
[2023-09-06] MEDS: pantoprazole 40 MG vial IV SCH (09:31)
[2023-09-06] MEDS: dexamethasone 4mg/ml inj IV SCH (09:32)
[2023-09-06 12:56] VITALS: BP 159/74; PULSE 84; RESP 27; O2SAT 95
[2023-09-06] MEDS ORDERED: REMDESIVIR 100 MG in NS 100ml IVPB IV SCH (20:00)
[2023-09-06] MEDS ORDERED: insulin glargine (Lantus) pen - multi-dose SQ SCH (21:00)
== END 2023-09-06 13:14 | disposition home or self-care (01) | DRG 179 ==
LOC: ER 21:21 → ED HOLD 09-06 01:10 → EDBEDREQ 09-06 03:30
PROVIDERS: ADMIT Internal Medicine; ATTEND Internal Medicine
PROC: XW033E5 Introduction of Remdesivir Anti-infective into Peripheral Vein, Percutaneous Approach, New Technology Group 5 (ICD-10-PCS; principal; 2023-09-06)
DX: U07.1 COVID-19 (principal); E78.00 Pure hypercholesterolemia, unspecified; F41.9 Anxiety disorder, unspecified; N18.30 Chronic kidney disease, stage 3 unspecified; E11.22 Type 2 diabetes mellitus with diabetic chronic kidney disease; F03.90 Unspecified dementia, unspecified severity, without behavioral disturbance, psychotic disturbance, mood disturbance, and anxiety; R09.02 Hypoxemia; R53.1 Weakness; Z79.899 Other long term (current) drug therapy; Z87.440 Personal history of urinary (tract) infections; Z79.82 Long term (current) use of aspirin
CPT/HCPCS: 36415; 71045; 80053; 80061; 81003; 83605; 83735; 83880; 84132; 84145; 84443; 84484; 85025; 85379; 87040; 87502; 87503; 87811; 93005; 99285; C9113; G0378; J1100; J1650; J2930; J3490; J7030

== ENCOUNTER 2023-11-11 11:39 | Emergency (ER) | payer MEDICARE, MEDICAID ==
[~2023-11-11] VITALS: Ht 160 cm; Wt 90.0 kg
[~2023-11-11 11:39] MED LIST changes: -OXYB10TA30 PO
[2023-11-11 12:09] VITALS: TEMP 98.1
[2023-11-11 13:45] LABS: BASOPHILS % (AUTO) 0.3 % (0-1); EOSINOPHILS # (AUTO) 0.1 X10'3 (0-0.9); EOSINOPHILS % (AUTO) 1.2 % (0-6); HEMATOCRIT 36.3 % (35.0-45.0); HEMOGLOBIN 12.1 g/dl (12.0-16.0); LYMPHOCYTES # (AUTO) 2.4 X10'3 (1.1-4.8); LYMPHOCYTES % (AUTO) 38.4 % (21-51); MEAN CORPUSCULAR HEMOGLOBIN 32.3 PG (27.0-31.0); MEAN CORPUSCULAR HGB CONC 33.3 g/dL (33.0-36.5); MEAN CORPUSCULAR VOLUME 96.9 FL (78-98); MEAN PLATELET VOLUME 7.1 FL (7.4-10.4); MONOCYTES # (AUTO) 0.7 X10'3 (0-0.9); MONOCYTES % (AUTO) 10.3 % (2-12); NEUTROPHILS # (AUTO) 3.2 X10'3 (1.8-7.7); NEUTROPHILS % (AUTO) 49.8 % (42-75); PLATELET COUNT 212 X10'3 (140-440); RED BLOOD COUNT 3.75 X10'6 (4.20-5.60); RED CELL DISTRIBUTION WIDTH 14.8 % (11.5-14.5); WHITE BLOOD COUNT 6.3 X10'3 (4.5-11.0)
[2023-11-11 13:53] LABS: ANION GAP 5 (8-16); BLOOD UREA NITROGEN 23 MG/DL (7-18); BUN/CREATININE RATIO 22.8 (10.0-20.0); CALCIUM 8.9 MG/DL (8.5-10.1); CHLORIDE 101 MMOL/L (99-107); CREATININE 1.01 MG/DL (0.40-0.90); GLUCOSE 109 MG/DL (70-104); LIPASE 45 U/L (16-77); MAGNESIUM 1.4 MG/DL (1.5-2.4); POTASSIUM 4.9 MMOL/L (3.5-5.1); SODIUM 134 MMOL/L (135-145); TOTAL CARBON DIOXIDE 28.5 MMOL/L (24-32); eCRCL 39 ML/MIN; eGFR 53 ML/MIN
[2023-11-11 14:15] VITALS: BP 134/62; PULSE 62; RESP 16; O2SAT 95
[2023-11-11] MEDS: lactulose 20gm/30ml cup PO ONE (15:12)
[2023-11-11] MEDS: normal saline 1000ML IV soln IVB ONE (15:12)
[2023-11-11 15:22] LABS: BILIRUBIN,URINE NEGATIVE (Neg); CLARITY,URINE CLEAR (Clear); COLOR,URINE YELLOW (Yellow); GLUCOSE, URINE NEGATIVE (Neg); KETONES,URINE NEGATIVE (Neg); LEUKOCYTE ESTERASE ,URINE SMALL (Neg); NITRITES, URINE NEGATIVE (Neg); OCCULT BLOOD,URINE NEGATIVE (Neg); PH,URINE 5.5 (4.8-8.0); PROTEIN,URINE NEGATIVE (Neg); UA COLLECTION TYPE OTHER
[2023-11-11 15:30] LABS: SQUAMOUS EPITHELIAL CELL,UR NONE SEEN /LPF (FEW); WBC,URINE 0-4 /HPF (0-4)
[2023-11-11 15:31] LABS: BACTERIA,URINE NONE SEEN /HPF (Neg); RBC,URINE NONE SEEN /HPF (0-2)
== END 2023-11-11 18:08 | disposition home or self-care (01) ==
LOC: ER 11:39
DX: K59.00 Constipation, unspecified (principal); R10.12 Left upper quadrant pain; E78.00 Pure hypercholesterolemia, unspecified; E11.9 Type 2 diabetes mellitus without complications; Z79.82 Long term (current) use of aspirin; Z79.899 Other long term (current) drug therapy
CPT/HCPCS: 36415; 74018; 80048; 81001; 83690; 83735; 85025; 87077; 87088; 87186; 99284; J7030

== ENCOUNTER 2023-11-26 15:00 | Emergency (ER) | payer MEDICARE, MEDICAID ==
[~2023-11-26] VITALS: Ht 160 cm; Wt 90.0 kg
[2023-11-26 15:13] VITALS: TEMP 98.4
[2023-11-26 16:18] LABS: BILIRUBIN,URINE NEGATIVE (Neg); CLARITY,URINE CLEAR (Clear); COLOR,URINE YELLOW (Yellow); GLUCOSE, URINE NEGATIVE (Neg); KETONES,URINE NEGATIVE (Neg); LEUKOCYTE ESTERASE ,URINE NEGATIVE (Neg); NITRITES, URINE NEGATIVE (Neg); OCCULT BLOOD,URINE TRACE-INTACT (Neg); PH,URINE 7.5 (4.8-8.0); PROTEIN,URINE NEGATIVE (Neg)
[2023-11-26 16:24] LABS: UA COLLECTION TYPE STRAIGHT CATH
[2023-11-26 16:25] LABS: BACTERIA,URINE FEW /HPF (Neg); MUCUS STRANDS NONE SEEN /LPF (Neg); SQUAMOUS EPITHELIAL CELL,UR NONE SEEN /LPF (FEW); WBC,URINE 0-4 /HPF (0-4)
[2023-11-26 17:20] LABS: ALBUMIN 3.2 G/DL (3.4-5.0); ANION GAP 9 (8-16); BLOOD UREA NITROGEN 20 MG/DL (7-18); BUN/CREATININE RATIO 19.8 (10.0-20.0); CHLORIDE 101 MMOL/L (99-107); CREATININE 1.01 MG/DL (0.40-0.90); GLUCOSE 113 MG/DL (70-104); POTASSIUM 4.6 MMOL/L (3.5-5.1); SODIUM 138 MMOL/L (135-145); eCRCL 39 ML/MIN; eGFR 53 ML/MIN
[2023-11-26 18:39] LABS: BASOPHILS % (AUTO) 0.6 % (0-1); EOSINOPHILS # (AUTO) 0.1 X10'3 (0-0.9); EOSINOPHILS % (AUTO) 1.5 % (0-6); HEMATOCRIT 37.2 % (35.0-45.0); HEMOGLOBIN 12.7 g/dl (12.0-16.0); LYMPHOCYTES # (AUTO) 2.4 X10'3 (1.1-4.8); MEAN CORPUSCULAR HEMOGLOBIN 32.6 PG (27.0-31.0); MEAN CORPUSCULAR HGB CONC 34.1 g/dL (33.0-36.5); MEAN CORPUSCULAR VOLUME 95.7 FL (78-98); MEAN PLATELET VOLUME 7.6 FL (7.4-10.4); MONOCYTES # (AUTO) 0.6 X10'3 (0-0.9); MONOCYTES % (AUTO) 10.7 % (2-12); NEUTROPHILS # (AUTO) 2.7 X10'3 (1.8-7.7); NEUTROPHILS % (AUTO) 46.2 % (42-75); PLATELET COUNT 214 X10'3 (140-440); RED BLOOD COUNT 3.89 X10'6 (4.20-5.60); RED CELL DISTRIBUTION WIDTH 14.7 % (11.5-14.5); WHITE BLOOD COUNT 5.9 X10'3 (4.5-11.0)
[2023-11-26] MEDS: HYDROmorphone 1 mg/ml syringe IM ONE ×2 (19:40→19:44)
[2023-11-26 20:49] VITALS: BP 130/78; PULSE 73; RESP 16; O2SAT 98
== END 2023-11-26 20:51 | disposition home or self-care (01) ==
LOC: ER 15:01
DX: R82.998 Other abnormal findings in urine (principal); E78.00 Pure hypercholesterolemia, unspecified; E11.9 Type 2 diabetes mellitus without complications; Z79.82 Long term (current) use of aspirin; Z79.899 Other long term (current) drug therapy
CPT/HCPCS: 36415; 80048; 81001; 83605; 84145; 85025; 99283; A4353

== ENCOUNTER 2023-12-30 10:34 | Emergency (ER) | payer MEDICARE, MEDICAID ==
[~2023-12-30] VITALS: Ht 172.7 cm; Wt 90.0 kg
[2023-12-30 10:36] VITALS: BP 122/55; PULSE 55; O2SAT 96
[2023-12-30 11:40] VITALS: RESP 17
[2023-12-30] MEDS: HYDROcodone/acetaminophen 10/325mg tab PO ONE (11:40)
[2023-12-30] MEDS ORDERED: HYDR-3965 PO ×2 (13:31→13:35)
== END 2023-12-30 13:40 | disposition home or self-care (01) ==
LOC: ER 10:34
DX: S42.301A Unspecified fracture of shaft of humerus, right arm, initial encounter for closed fracture (principal); F03.90 Unspecified dementia, unspecified severity, without behavioral disturbance, psychotic disturbance, mood disturbance, and anxiety; E78.00 Pure hypercholesterolemia, unspecified; E11.9 Type 2 diabetes mellitus without complications; F32.A Depression, unspecified; Z60.2 Problems related to living alone; X58.XXXA Exposure to other specified factors, initial encounter; Y93.89 Activity, other specified; Y92.89 Other specified places as the place of occurrence of the external cause; Y99.8 Other external cause status
CPT/HCPCS: 29105; 71045; 73060; 99284; A4565; A6449

== ENCOUNTER 2024-03-17 20:23 | Emergency (ER) | payer MEDICARE, MEDICAID ==
[~2024-03-17] VITALS: Ht 160 cm; Wt 86.4 kg
[~2024-03-17 20:23] MED LIST changes: +BALS5OIN; +BISA-155 PO; +BUSP10TA11 PO; -DICL20GE TP; -DIVA-76 PO; +DOCU100C40 PO; +FURO20TA4 PO; +HYDR-3965 PO; +LACT10SO3 PO; -LACT1CAP75 PO; +MEMA5TAB15 PO; +NA P133E4 RC; +ONDA-243 PO; +OXYB5TAB21 PO; +RISP0.253 PO; +VITC500T PO
[2024-03-17 22:19] VITALS: BP 147/68; PULSE 60; RESP 14; TEMP 98.2; O2SAT 95
== END 2024-03-17 22:51 ==
LOC: ER 20:24
DX: T88.7XXA Unspecified adverse effect of drug or medicament, initial encounter (principal); T42.6X5A Adverse effect of other antiepileptic and sedative-hypnotic drugs, initial encounter; Z79.899 Other long term (current) drug therapy; Z79.82 Long term (current) use of aspirin; Z79.1 Long term (current) use of non-steroidal anti-inflammatories (NSAID); Y92.89 Other specified places as the place of occurrence of the external cause
CPT/HCPCS: 99283